=== PATIENT | male | born 1965 ===

== ENCOUNTER 2020-10-26 02:06 | Inpatient (IN) | payer MEDICAID ==
[2020-10-26] MEDS ORDERED: Dextrose 50% Abboject 50 ML SYRINGE ONE ×3 (02:25→10:13)
[2020-10-26] MEDS ORDERED: Piperacillin/Tazobactam 4.5 GM VIAL ONE ×2 (02:43→03:19)
[2020-10-26 03:23] LABS: #Eosinphils 0.1 10x3/uL (0.0-0.5); #Monocytes 0.6 10x3/uL (0.0-1.1); %Basophils 0.3 % (0.0-2.0); %Eosinophils 1.1 % (0.0-6.0); %Monocytes 8.6 % (0.0-10.0); %Neutrophils 70.2 % (40.0-75.0); Hemoglobin 9.1 g/dL (13.5-17.5); Mean Corpuscular HGB CONC 30.4 g/dL (32.0-36.0); Mean Corpuscular Hemoglobin 28.8 pg (27.0-33.0); Mean Corpuscular Volume 94.6 fl (81.2-95.1); Mean Platelet Volume 12.6 fl (7.4-10.4); Platelet Count 156 10x3/uL (150-450); RBC Distribution Width 14.2 % (11.5-14.5); Red Blood Cell (RBC) Count 3.16 10x6/uL (4.32-5.72); White Blood Cell (WBC) Count 7.1 10x3/uL (3.5-10.5)
[2020-10-26 03:43] LABS: ALT (SGPT) 434 U/L (8-55); AST (SGOT) 383 U/L (5-34); Albumin 3.3 g/dL (3.5-5.0); Alkaline Phosphatase 236 U/L (40-110); Anion Gap 15 mmol/L (10-20); BUN (Urea Nitrogen) 69 mg/dL (8.4-25.7); Bilirubin, Total 0.2 mg/dL (0.2-1.2); Calc. Creatinine Clearance 0 mL/min (70-130); Calcium 8.3 mg/dL (7.8-10.44); Carbon Dioxide 27 mmol/L (22-29); Chloride 106 mmol/L (98-107); Globulin 2.6 g/dL (2.4-3.5); Glucose 421 mg/dL (70-105); Potassium 4.6 mmol/L (3.5-5.1); Protein, Total 5.9 g/dL (6.0-8.3); Sodium 143 mmol/L (136-145)
[2020-10-26 03:53] LABS: INR-International Normal Ratio 1.1; PTT 27.7 sec (22.0-33.0); Prothrombin Time 11.3 sec (9.5-12.1)
[2020-10-26 03:54] LABS: Bilirubin Neg (Negative); Blood, Urine Negative (Negative); Clarity Slightly Cloudy (Clear); Glucose, Urine (Dipstick) Normal (Negative); Ketone, Urine Negative (Negative); Leukocyte 100 (Negative); Nitrite Negative (Negative); Protein, Urine (Dipstick) 30 mg/dl (Neg-Trace); Urobilinogen Normal mg/dL (Less than 2)
[2020-10-26 04:02] LABS: RBC/HPF 0-3 HPF (0-3); Yeast-Budding 4+ HPF (None Seen)
[2020-10-26 04:03] LABS: Bacteria/HPF 1+ HPF (None Seen); Mucous/LPF Rare LPF (<2+); Squamous Epithelial 0-3 HPF (0-3)
[2020-10-26] MEDS ORDERED: Calcium Carbonate 500 MG ChewTAB PO PRN (04:52)
[2020-10-26] MEDS ORDERED: Acetaminophen 325 MG TAB PO PRN (04:52)
[2020-10-26] MEDS ORDERED: Guaifenesin DM 100-10/5 ML UDCUP PO PRN (04:52)
[2020-10-26] MEDS ORDERED: Ondansetron PF 4 MG/2 ML Vial IVP PRN (04:52)
[2020-10-26] MEDS ORDERED: Dextrose 5% in Water 1,000 ML IV PRN (04:59)
[2020-10-26] MEDS ORDERED: Dextrose 50% Abboject 50 ML SYRINGE SLOW IVP PRN (04:59)
[2020-10-26 05:02] LABS: SARS-CoV-2 NAA Rapid Test Not Detected (NotDetected)
[2020-10-26] MEDS ORDERED: Hydrocortisone Sod Succ/PF 100 mg/2 ml Vial ONE (05:07)
[2020-10-26 06:07] LABS: Lactic Acid 1.1 mmol/L (0.5-2.2)
[2020-10-26] MEDS: Sodium Chloride 0.9% 1,000 ML IV SCH ×3 (07:30→14:56)
[2020-10-26] MEDS ORDERED: Enoxaparin Sodium 40 MG/0.4 ML SYRINGE SC SCH (09:00)
[2020-10-26] MEDS ORDERED: Fluconazole 100 MG TAB PER TUBE SCH (09:00)
[2020-10-26] MEDS: Hydrocortisone Sod Succ/PF 100 mg/2 ml Vial IVP SCH ×3 (09:44→21:23)
[2020-10-26] MEDS: Pantoprazole 40 MG GRANULES PACKET PER TUBE SCH (09:45)
[2020-10-26] MEDS: Gabapentin 100 MG CAP PO SCH (09:45)
[2020-10-26] MEDS: Cholecalciferol 1,000 UNITS (25 MCG) TAB PO SCH (09:45)
[2020-10-26] MEDS: Saccharomyces boulardii 250 MG CAP PO SCH (09:45)
[2020-10-26] MEDS: Aspirin 325 mg Enteric Coated Tablet PO SCH (09:45)
[2020-10-26] MEDS ORDERED: Cefepime 1 GM VIAL ONE (09:51)
[2020-10-26] MEDS ORDERED: Enoxaparin Sodium 40 MG/0.4 ML SYRINGE ONE (09:52)
[2020-10-26] MEDS ORDERED: Aspirin 325 MG TAB ONE (09:52)
[2020-10-26] MEDS ORDERED: Fluconazole In NaCl,Iso-Osm 200 MG in Premix Bag 1 BAG IVPB SCH (10:15)
[2020-10-26] MEDS: Cefepime 1 GM in Sodium Chloride 0.9% 100 ML IVPB SCH ×2 (10:30→22:02)
[2020-10-26 11:34] LABS: Hemoglobin A1c 8.9 % (4.0-6.0)
[2020-10-26 12:14] LABS: HBCM Index 0.06 S/CO (0-0.79); Hep A IgM AB Non-Reactive (NonReactive); Hep A IgM S/CO 0.11 S/CO (0-0.79); Hep B Surf Ag Non-Reactive S/CO (NonReactive); Hep C IgG Ab Non-Reactive (NonReactive); Hep C Index 0.16 S/CO (0-0.79); Hepatitis B Core IgM Abs Non-Reactive (NonReactive)
[2020-10-26 12:59] LABS: Actual Bicarbonate (HCO3v) 24 mEq/L (22-28); Base Excess -2.6 mEq/L (-2.0 to +3.0); Calcium, Ionized (venous) 1.01 mmol/L (1.16-1.32); Chloride (VBG) 113 mmol/L (98-106); Hemoglobin (Hb) 9.8 g/dL (13.1-17.2); Potassium (VBG) 5.14 mmol/L (3.70-5.30); Puncture Site Other Site; RapidComm Collect By CBN; Sodium 141.8 mmol/L (133-146); pH (venous) 7.32 (7.32-7.43)
[2020-10-26] MEDS ORDERED: Vancomycin 1 GM in Premix Bag 1 BAG IVPB SCH (21:00)
[2020-10-27] MEDS: Sodium Chloride 0.9% 1,000 ML IV SCH ×2 (02:53→16:17)
[2020-10-27] MEDS ORDERED: Vancomycin HCl 1 GM in Sodium Chloride 0.9% 250 ML 250 ML IVPB SCH (06:00)
[2020-10-27] MEDS: Aspirin 325 mg Enteric Coated Tablet PO SCH (08:11)
[2020-10-27] MEDS: Enoxaparin Sodium 30 MG/0.3 ML SYRINGE SC SCH (08:11)
[2020-10-27] MEDS: Cholecalciferol 1,000 UNITS (25 MCG) TAB PO SCH (08:11)
[2020-10-27] MEDS: Gabapentin 100 MG CAP PO SCH (08:11)
[2020-10-27] MEDS: Fluconazole In NaCl,Iso-Osm 200 MG in Premix Bag 1 BAG IVPB SCH (08:11)
[2020-10-27] MEDS: Pantoprazole 40 MG GRANULES PACKET PER TUBE SCH (08:11)
[2020-10-27] MEDS: Hydrocortisone Sod Succ/PF 100 mg/2 ml Vial IVP SCH ×2 (08:11→16:18)
[2020-10-27] MEDS: Saccharomyces boulardii 250 MG CAP PO SCH (08:12)
[2020-10-27] MEDS ORDERED: FLU VACC QS2020-21(6MOS UP)/PF 60 MCG/0.5 ML SYRINGE IM ONE (09:00)
[2020-10-27 09:38] LABS: ALT (SGPT) 286 U/L (8-55); AST (SGOT) 131 U/L (5-34); Albumin 3.1 g/dL (3.5-5.0); Alkaline Phosphatase 181 U/L (40-110); Anion Gap 12 mmol/L (10-20); BUN (Urea Nitrogen) 40 mg/dL (8.4-25.7); Bilirubin, Total 0.3 mg/dL (0.2-1.2); Calc. Creatinine Clearance 53 mL/min (70-130); Calcium 7.5 mg/dL (7.8-10.44); Carbon Dioxide 22 mmol/L (22-29); Chloride 118 mmol/L (98-107); Globulin 2.7 g/dL (2.4-3.5); Glucose 213 mg/dL (70-105); Magnesium 2.1 mg/dL (1.6-2.6); Phosphorus 3.4 mg/dL (2.3-4.7); Protein, Total 5.8 g/dL (6.0-8.3); Sodium 147 mmol/L (136-145)
[2020-10-27 09:43] LABS: #Monocytes 0.4 10x3/uL (0.0-1.1); #Neutrophils 6.3 10x3/uL (1.5-8.4); %Basophils 0.1 % (0.0-2.0); %Eosinophils 0.1 % (0.0-6.0); %Lymphocytes 13.6 % (18.0-47.0); %Monocytes 4.8 % (0.0-10.0); %Neutrophils 80.1 % (40.0-75.0); Hemoglobin 9.8 g/dL (13.5-17.5); Mean Corpuscular HGB CONC 29.4 g/dL (32.0-36.0); Mean Corpuscular Hemoglobin 28.4 pg (27.0-33.0); Mean Corpuscular Volume 96.5 fl (81.2-95.1); Mean Platelet Volume 12.9 fl (7.4-10.4); Platelet Count 131 10x3/uL (150-450); RBC Distribution Width 14.4 % (11.5-14.5); Red Blood Cell (RBC) Count 3.45 10x6/uL (4.32-5.72); White Blood Cell (WBC) Count 7.9 10x3/uL (3.5-10.5)
[2020-10-27] MEDS: Cefepime 1 GM in Sodium Chloride 0.9% 100 ML IVPB SCH ×2 (10:12→21:36)
[2020-10-27 10:22] LABS: Free T4 (Free Thyroxine) 0.7 ng/dL (0.70-1.48); Thyroid Stimulating Hormone 0.0094 uIU/mL (0.35-4.94)
[2020-10-27 10:25] LABS: Hypochromia SLIGHT = 6-15 cells (100X) (0-5/hpf); Platelet Morphology Comment Appears Adequate; Polychromasia SLIGHT = 2-3 cells (100X) (0-2/hpf); Tear Drops SLIGHT = 2-5 cells (100X) (0-1/hpf)
[2020-10-27] MEDS ORDERED: Dextrose 5% in Water 1,000 ML IV PRN (12:47)
[2020-10-27] MEDS ORDERED: Dextrose 50% Abboject 50 ML SYRINGE SLOW IVP PRN (12:47)
[2020-10-27] MEDS: HumaLOG 300 UNITS/3 ML VIAL SC PRN (16:19)
[2020-10-27] MEDS: Vancomycin HCl 500 MG in Sodium Chloride 0.9% 100 ML IVPB SCH (20:00)
[2020-10-28] MEDS: Sodium Chloride 0.9% 1,000 ML IV SCH ×3 (00:40→21:48)
[2020-10-28] MEDS: Cholecalciferol 1,000 UNITS (25 MCG) TAB PO SCH (09:50)
[2020-10-28] MEDS: Pantoprazole 40 MG GRANULES PACKET PER TUBE SCH (09:50)
[2020-10-28] MEDS: Aspirin 325 mg Enteric Coated Tablet PO SCH (09:50)
[2020-10-28] MEDS: Saccharomyces boulardii 250 MG CAP PO SCH (09:50)
[2020-10-28] MEDS: Enoxaparin Sodium 30 MG/0.3 ML SYRINGE SC SCH (09:51)
[2020-10-28] MEDS: Gabapentin 100 MG CAP PO SCH (09:51)
[2020-10-28] MEDS: Fluconazole In NaCl,Iso-Osm 200 MG in Premix Bag 1 BAG IVPB SCH (09:52)
[2020-10-28] MEDS: Vancomycin HCl 500 MG in Sodium Chloride 0.9% 100 ML IVPB SCH ×2 (10:49→20:13)
[2020-10-28] MEDS: Cefepime 1 GM in Sodium Chloride 0.9% 100 ML IVPB SCH ×2 (11:00→21:47)
[2020-10-28] MEDS: HumaLOG 300 UNITS/3 ML VIAL SC PRN (11:00)
[2020-10-28 12:40] LABS: #Monocytes 0.5 10x3/uL (0.0-1.1); #Neutrophils 4.9 10x3/uL (1.5-8.4); %Basophils 0.2 % (0.0-2.0); %Lymphocytes 10.7 % (18.0-47.0); %Monocytes 8.3 % (0.0-10.0); %Neutrophils 79.8 % (40.0-75.0); Hemoglobin 8.4 g/dL (13.5-17.5); Mean Corpuscular HGB CONC 30.8 g/dL (32.0-36.0); Mean Corpuscular Volume 94.1 fl (81.2-95.1); Mean Platelet Volume 12.1 fl (7.4-10.4); Platelet Count 136 10x3/uL (150-450); RBC Distribution Width 14.4 % (11.5-14.5); White Blood Cell (WBC) Count 6.2 10x3/uL (3.5-10.5)
[2020-10-28 12:53] LABS: ALT (SGPT) 183 U/L (8-55); AST (SGOT) 83 U/L (5-34); Albumin 2.6 g/dL (3.5-5.0); Alkaline Phosphatase 163 U/L (40-110); Anion Gap 11 mmol/L (10-20); BUN (Urea Nitrogen) 33 mg/dL (8.4-25.7); Bilirubin, Total 0.2 mg/dL (0.2-1.2); Calc. Creatinine Clearance 60 mL/min (70-130); Calcium 7.1 mg/dL (7.8-10.44); Carbon Dioxide 20 mmol/L (22-29); Chloride 117 mmol/L (98-107); Globulin 2.1 g/dL (2.4-3.5); Glucose 232 mg/dL (70-105); Potassium 4.1 mmol/L (3.5-5.1); Protein, Total 4.7 g/dL (6.0-8.3); Sodium 144 mmol/L (136-145)
[2020-10-28 15:13] VITALS: BMI 17.7
[2020-10-29] MEDS: HumaLOG 300 UNITS/3 ML VIAL SC PRN ×2 (00:19→09:50)
[2020-10-29] MEDS: Sodium Chloride 0.9% 1,000 ML IV SCH (07:15)
[2020-10-29 08:07] LABS: #Eosinphils 0.1 10x3/uL (0.0-0.5); #Monocytes 0.4 10x3/uL (0.0-1.1); #Neutrophils 2.3 10x3/uL (1.5-8.4); %Basophils 0.4 % (0.0-2.0); %Lymphocytes 38.6 % (18.0-47.0); %Monocytes 8.3 % (0.0-10.0); %Neutrophils 49.6 % (40.0-75.0); Hemoglobin 8.3 g/dL (13.5-17.5); Mean Corpuscular HGB CONC 30.2 g/dL (32.0-36.0); Mean Corpuscular Hemoglobin 28.1 pg (27.0-33.0); Mean Corpuscular Volume 93.2 fl (81.2-95.1); Mean Platelet Volume 12.7 fl (7.4-10.4); Platelet Count 159 10x3/uL (150-450); RBC Distribution Width 14.2 % (11.5-14.5); Red Blood Cell (RBC) Count 2.95 10x6/uL (4.32-5.72); White Blood Cell (WBC) Count 4.6 10x3/uL (3.5-10.5)
[2020-10-29 08:36] LABS: Vancomycin, Trough 13.5 ug/mL
[2020-10-29 08:44] LABS: ALT (SGPT) 336 U/L (8-55); AST (SGOT) 405 U/L (5-34); Albumin 2.6 g/dL (3.5-5.0); Alkaline Phosphatase 195 U/L (40-110); Anion Gap 9 mmol/L (10-20); BUN (Urea Nitrogen) 22 mg/dL (8.4-25.7); Bilirubin, Total 0.2 mg/dL (0.2-1.2); Calc. Creatinine Clearance 72 mL/min (70-130); Calcium 7.3 mg/dL (7.8-10.44); Carbon Dioxide 27 mmol/L (22-29); Chloride 112 mmol/L (98-107); Globulin 2.3 g/dL (2.4-3.5); Glucose 164 mg/dL (70-105); Potassium 4.1 mmol/L (3.5-5.1); Protein, Total 4.9 g/dL (6.0-8.3); Sodium 144 mmol/L (136-145)
[2020-10-29] MEDS ORDERED: Vancomycin HCl 750 MG in Sodium Chloride 0.9% 250 ML 250 ML IVPB SCH (09:00)
[2020-10-29] MEDS: Fluconazole In NaCl,Iso-Osm 200 MG in Premix Bag 1 BAG IVPB SCH (09:14)
[2020-10-29] MEDS: Enoxaparin Sodium 30 MG/0.3 ML SYRINGE SC SCH (09:17)
[2020-10-29] MEDS: Hydrocortisone 10 mg Tablet PO SCH (09:18)
[2020-10-29] MEDS: Cholecalciferol 1,000 UNITS (25 MCG) TAB PO SCH (09:18)
[2020-10-29] MEDS: Aspirin 325 mg Enteric Coated Tablet PO SCH (09:18)
[2020-10-29] MEDS: Pantoprazole 40 MG GRANULES PACKET PER TUBE SCH (09:18)
[2020-10-29] MEDS: Gabapentin 100 MG CAP PO SCH (09:18)
[2020-10-29] MEDS: Saccharomyces boulardii 250 MG CAP PO SCH (09:18)
[2020-10-29] MEDS: Cefepime 1 GM in Sodium Chloride 0.9% 100 ML IVPB SCH (09:28)
[2020-10-30] MEDS: HumaLOG 300 UNITS/3 ML VIAL SC PRN ×2 (00:19→08:40)
[2020-10-30 06:25] LABS: #Eosinphils 0.1 10x3/uL (0.0-0.5); #Monocytes 0.4 10x3/uL (0.0-1.1); #Neutrophils 2.1 10x3/uL (1.5-8.4); %Basophils 0.4 % (0.0-2.0); %Eosinophils 1.7 % (0.0-6.0); %Lymphocytes 42.3 % (18.0-47.0); %Neutrophils 44.9 % (40.0-75.0); Hemoglobin 8.8 g/dL (13.5-17.5); Mean Corpuscular HGB CONC 31.4 g/dL (32.0-36.0); Mean Corpuscular Hemoglobin 28.5 pg (27.0-33.0); Mean Corpuscular Volume 90.6 fl (81.2-95.1); Mean Platelet Volume 11.9 fl (7.4-10.4); Platelet Count 169 10x3/uL (150-450); RBC Distribution Width 13.9 % (11.5-14.5); Red Blood Cell (RBC) Count 3.09 10x6/uL (4.32-5.72); White Blood Cell (WBC) Count 4.7 10x3/uL (3.5-10.5)
[2020-10-30 07:17] LABS: ALT (SGPT) 325 U/L (8-55); AST (SGOT) 319 U/L (5-34); Albumin 2.8 g/dL (3.5-5.0); Alkaline Phosphatase 205 U/L (40-110); Anion Gap 11 mmol/L (10-20); BUN (Urea Nitrogen) 18 mg/dL (8.4-25.7); Bilirubin, Total 0.3 mg/dL (0.2-1.2); Calc. Creatinine Clearance 77 mL/min (70-130); Calcium 7.4 mg/dL (7.8-10.44); Carbon Dioxide 26 mmol/L (22-29); Chloride 105 mmol/L (98-107); Globulin 2.4 g/dL (2.4-3.5); Glucose 139 mg/dL (70-105); Protein, Total 5.2 g/dL (6.0-8.3); Sodium 138 mmol/L (136-145)
[2020-10-30] MEDS: Cholecalciferol 1,000 UNITS (25 MCG) TAB PO SCH (07:29)
[2020-10-30] MEDS: Fluconazole In NaCl,Iso-Osm 200 MG in Premix Bag 1 BAG IVPB SCH (07:29)
[2020-10-30] MEDS: Saccharomyces boulardii 250 MG CAP PO SCH (07:29)
[2020-10-30] MEDS: Enoxaparin Sodium 30 MG/0.3 ML SYRINGE SC SCH (07:29)
[2020-10-30] MEDS: Hydrocortisone 10 mg Tablet PO SCH (07:30)
[2020-10-30] MEDS: Aspirin 325 mg Enteric Coated Tablet PO SCH (07:30)
[2020-10-30] MEDS: Pantoprazole 40 MG GRANULES PACKET PER TUBE SCH ×2 (07:30→07:31)
[2020-10-30] MEDS: Gabapentin 100 MG CAP PO SCH (07:30)
[2020-10-30 16:55] VITALS: BP 126/81; TEMP 97.9
[2020-10-31] MEDS ORDERED: Enoxaparin Sodium 40 MG/0.4 ML SYRINGE SC SCH (09:00)
== END 2020-10-30 18:36 | DRG 871 ==
LOC: CSHERS 02:06 → CSHERHOLD 06:16 → CSHICU 13:14 → CSHTELE 10-27 17:55
PROVIDERS: ADMIT Internal Medicine; ATTEND Family Medicine
DX: B37.7 Candidal sepsis (principal); E43 Unspecified severe protein-calorie malnutrition; N17.9 Acute kidney failure, unspecified; Z68.1 Body mass index [BMI] 19.9 or less, adult; R65.20 Severe sepsis without septic shock; Z20.822 Contact with and (suspected) exposure to COVID-19; E11.649 Type 2 diabetes mellitus with hypoglycemia without coma; E03.9 Hypothyroidism, unspecified; E78.5 Hyperlipidemia, unspecified; Z93.1 Gastrostomy status; B37.49 Other urogenital candidiasis; T68.XXXA Hypothermia, initial encounter; R79.89 Other specified abnormal findings of blood chemistry; K80.80 Other cholelithiasis without obstruction; D49.7 Neoplasm of unspecified behavior of endocrine glands and other parts of nervous system; Z79.82 Long term (current) use of aspirin; Z79.52 Long term (current) use of systemic steroids; Z79.899 Other long term (current) drug therapy
CPT/HCPCS: 36415; 36416; 51702; 71045; 76705; 80053; 80074; 80202; 81003; 81015; 82010; 82533; 82805; 83036; 83525; 83605; 83630; 83735; 84100; 84145; 84439; 84443; 84681; 85025; 85610; 85730; 87040; 87045; 87046; 87077; 87081; 87086; 87324; 87427; 87449; 93005; 93010; 94760; 96365; 96366; 96367; 96375; J0692; J1450; J1650; J1720; J1815; J2543; J3370; J3490; J7050; U0002